=== PATIENT | female | born 1935 | race Caucasian/White ===

== ENCOUNTER 2022-03-20 07:16 | Day surgery (SDC) | payer MEDICARE, BC ==
[2022-03-16 13:11] VITALS: BMI 31.1
[~2022-03-20 07:16] MED LIST: LACTATED RINGERS 1,000 ML IV SCH
[2022-03-20 08:06] VITALS: RESP 16; TEMP 97.4
[2022-03-20] MEDS ORDERED: PROPOFOL 10 MG/ML 20 ML VIAL IV ONE (08:44)
--- NOTE | 2022-03-20 09:02 | P.PCN ---
Date of Procedure: 03/20/22 Procedure(s) Performed: BRIEF HISTORY: Patient is a 86-year-old pleasant female scheduled for an elective colonoscopy as a part of evaluation of intermittent rectal bleeding for the last few months duration. PROCEDURE PERFORMED: Colonoscopy. PREOPERATIVE DIAGNOSIS: Intermittent rectal bleeding. IV sedation per Anesthesia. PROCEDURE: After informed consent was obtained, the patient, was brought into the endoscopy unit. IV sedation was administered by Anesthesia under continuous monitoring. Digital rectal examination was normal. Initially the Olympus CF-160 flexible video colonoscope was then inserted in the rectum, gradually advanced into the cecum without any difficulty. Careful examination was performed as the scope was gradually being withdrawn. Ileocecal valve and the appendiceal orifice were visualized and appeared normal. Prep was excellent. Mucosa of the cecum, ascending colon, transverse colon, descending colon, sigmoid colon, and rectum appeared normal. Scattered sigmoid diverticulosis. Retroflexion was performed in the rectum and grade 2 internal hemorrhoids were seen. The patient tolerated the procedure well. IMPRESSION: Moderate left sided diverticulosis Grade 2 internal hemorrhoids RECOMMENDATIONS: Findings of this examination were discussed with the patient i s a family. She was advised to be a high-fiber diet and take fiber supplements a regular basis and avoid straining and constipation..
[2022-03-20 09:26] VITALS: BP 129/76; PULSE 64
== END 2022-03-20 09:48 | disposition home or self-care (01) ==
LOC: ORWHC2ENDO 07:16
PROVIDERS: ATTEND Internal Medicine Gastroenterology
DX: K57.30 Diverticulosis of large intestine without perforation or abscess without bleeding (principal); K64.8 Other hemorrhoids; I10 Essential (primary) hypertension; F41.9 Anxiety disorder, unspecified; Z88.5 Allergy status to narcotic agent; E07.9 Disorder of thyroid, unspecified; Z79.899 Other long term (current) drug therapy; Z79.890 Hormone replacement therapy
CPT/HCPCS: 45378; J2704

== ENCOUNTER 2023-07-03 06:03 | Day surgery (SDC) | payer BC, MEDICARE ==
[2023-07-01 10:20] VITALS: BMI 25.9
[~2023-07-03 06:03] MED LIST changes: +ACETAMINOPHEN TAB 500 MG TAB PO PRN; +HEPARIN SODIUM,PORCINE 5,000 UNIT/ML 1 ML VIAL SQ PRN; -LACTATED RINGERS 1,000 ML IV SCH; +Pre Op ABX Message 1 EACH MISC MISCELLANE ONE
[2023-07-03] MEDS ORDERED: LACTATED RINGERS 1,000 ML IV SCH (06:19)
[2023-07-03] MEDS ORDERED: LIDOCAINE 1% (10MG/ML) FOR IV START INTRADERMA PRN (06:19)
[2023-07-03] MEDS ORDERED: droPERidol 5 MG/2 ML VIAL IVP ONE (06:19)
[2023-07-03] MEDS ORDERED: ONDANSETRON 4 MG/2 ML VIAL IVP ONE (06:19)
[2023-07-03] MEDS ORDERED: DEXAMETHASONE SOD PHOSPHATE 4 MG/ML 1 ML VIAL IV ONE (06:19)
[2023-07-03] MEDS ORDERED: HYDROmorphone 0.5 MG/0.5 ML SYRINGE IVP PRN (07:00)
[2023-07-03 07:25] LABS: Basophils % (A) 0 %; Eosinophils # (A) 0.1 k/uL (0-0.7); Eosinophils % (A) 1 %; HCT 48.6 % (34.0-46.0); HGB 16.6 gm/dL (11.4-16.0); Lymphocytes # (A) 0.8 k/uL (1.0-4.8); Lymphocytes % (A) 8 %; MCH 32.2 pg (25.0-35.0); MCHC 34.2 g/dL (31.0-37.0); Mean Platelet Volume 8.1; Monocytes # (A) 0.5 k/uL (0-1.0); Monocytes % (A) 5 %; Neutrophils # (A) 8.8 k/uL (1.3-7.7); Neutrophils % (A) 85 %; Platelet Count 221 k/uL (150-450); RBC 5.17 m/uL (3.80-5.40); RDW 12.9 % (11.5-15.5); WBC 10.4 k/uL (3.8-10.6)
[2023-07-03] MEDS ORDERED: PROPOFOL 10 MG/ML 20 ML VIAL IV ONE (07:25)
[2023-07-03] MEDS ORDERED: fentaNYL (PF) 50 MCG/ML 2 ML AMP ONE (07:25)
[2023-07-03] MEDS ORDERED: MIDAZOLAM 2 MG/2 ML VIAL ONE (07:25)
[2023-07-03 07:36] LABS: African American GFR (CKD) >90 (>60 ml/min/1.73 sqM); Anion Gap 16 mmol/L; Blood Urea Nitrogen 21 mg/dL (7-17); Calcium 9.9 mg/dL (8.4-10.2); Carbon Dioxide 22 mmol/L (22-30); Chloride 102 mmol/L (98-107); Glucose 105 mg/dL (74-99); Non-African American GFR(CKD) 81 (>60 ml/min/1.73 sqM); Sodium 140 mmol/L (137-145)
[2023-07-03 07:40] LABS: Potassium 3.3 mmol/L (3.5-5.1)
[2023-07-03] MEDS ORDERED: LIDOCAINE 0.5%-EPI 1:200,000 50 ML VIAL SQ ONE (08:07)
--- NOTE | 2023-07-03 08:23 | P.OP ---
Date of Procedure: 07/03/23 Preoperative Diagnosis: Internal and external hemorrhoids Postoperative Diagnosis: Internal and external hemorrhoids Procedure(s) Performed: Excision of internal and external hemorrhoids Anesthesia: yamilet CARRANZA Surgeon: Miguel Major Pathology: other (Internal and external hemorrhoids) Condition: stable Disposition: PACU Description of Procedure: The patient received spinal anesthetic. She was then placed in the prone jackknife position. Her anus was prepped and draped usual fashion. Patient had large internal and external hemorrhoids. The left lateral hemorrhoidal column was grasped. Allis clamps after the anus retractors placed. And then using the Harmonic scissors the hemorrhoid was performed. In identical fashion the right anterior and right posterior hemorrhoid columns were removed. The was retrieved cyst. There is no bleeding seen. The anus then injected with 1% local Xyloca ine. Patient tolerated the procedure well. She was sent to recovery in stable condition.
[2023-07-03 08:42] VITALS: TEMP 97.1
[2023-07-03] MEDS ORDERED: METOPROLOL TARTRATE 25 MG TAB PO SCH (10:45)
[2023-07-03 11:28] VITALS: BP 116/82; PULSE 98; RESP 18
--- NOTE | 2023-07-03 14:11 | P.CRDCN ---
History of Present Illness Consult date: 07/03/23 Consult reason: atrial fibrillation (New-onset) History of present illness: History of present illness: This is an 88-year-old female patient with Dr. Barney with past medical history of hypertension. We have been asked to evaluate patient for atrial fibrillation during surgery. Patient presented to the hospital status post hemorrhoidectomy is seen today in the recovery room. Patient has no symptoms. She no previous history of atrial fibrillation. Rhythm strips during procedure is SVT that was short and self-limiting. EKG is atrial tachycardia. Patient states she has chronic shortness of breath no change. No chest pain and no palpitations. Blood pressure 123/67, heart rate currently 60s. Home cardiac medications: Echocardiogram performed 07/2020 revealed normal EF, mild to moderate MR Lexiscan stress test performed 12/28/2020 was normal Review Of Systems: At the time of my exam: CONSTITUTIONAL: Denies fever or chills. CARDIOVASCULAR: Denies chest pain, Denies shortness of breath, no orthopnea, PND or palpitations. RESPIRATORY: Denies cough. GASTROINTESTINAL: Denies abdominal pain, diarrhea, constipation, nausea or vomi ting. MUSCULOSKELETAL: Denies myalgias. NEUROLOGIC: Denies numbness, tingling or weakness. ENDOCRINE: Denies fatigue, weight change, polydipsia or polyurina. GENITOURINARY: Denies burning, hematuria or urgency with micturation. HEMATOLOGIC: Denies history of anemia or bleeding. Physical examination: Gen: This is an 88-year-old female resting on stretcher and appears to be comfortable. VS: reviewed HEENT: Head is atraumatic, normocephalic. Pupils equal, round. Sclerae is anicteric. NECK: Supple. No JVD. LUNGS: Clear to auscultation. No wheezes or rhonchi. No intercostal retractions. HEART: Regular rate and rhythm. Systolic murmur. ABDOMEN: Soft No tenderness. EXTREMITIES: No pedal edema. No calf tenderness. NEUROLOGICAL: Patient is awake, alert and oriented x3. Assessment: Atrial tachycardia self-limiting Hypertension Plan: Start patient on Lopressor 25 mg twice daily Patient is cleared for discharge from cardiology will follow up with Dr. Barney in one week. Thank you kindly for this consultation. Nurse practitioner note has been reviewed, I agree with documented findings and plan of care. Patient was seen and examined. Past Medical History Past Medical History: Hypertension, Osteoarthritis (OA), Thyroid Disorder Additional Past Medical History / Comment(s): SOB. Trouble with bowel movements due to hemrrhoids. URINARY LEAKAGE WEARS A PAD. History of Any Multi-Drug Resistant Organisms: None Reported Past Surgical History: Cholecystectomy, Joint Replacement, Tubal Ligation Additional Past Surgical History / Comment(s): BILATERAL TOTAL KNEE, HIP AND SHOULDER REPLACEMENTS, BILATERAL CATARCATS REMOVED. Past Anesthesia/Blood Transfusion Reactions: Motion Sickness, Postoperative Nausea & Vomiting (PONV) Past Psychological History: Anxiety Smoking Status: Never smoker Past Alcohol Use History: None Reported Past Drug Use History: None Reported - Past Family History Mother Family Medical History: No Reported History Medications and Allergies Home Medications Medication Instructions Recorded Confirmed Type Chlorthalidone 25 mg PO DAILY 03/16/22 07/03/23 History Levothyroxine Sodium [Synthroid] 112 mcg PO PC-LUNCH 03/16/22 07/03/23 History ALPRAZolam [Xanax] 1 mg PO HS 07/01/23 07/03/23 History Cholecalciferol [Vitamin D3 (25 50 mcg PO DAILY 07/01/23 07/03/23 History Mcg = 1000 Iu)] Multivitamins, Thera [Multivitamin 1 tab PO DAILY 07/01/23 07/03/23 History (formulary)] Acetaminophen Tab [Tylenol] 650 mg PO Q6H #30 tab 07/03/23 Rx Docusate [Colace] 100 mg PO BID #20 capsule 07/03/23 Rx Ibuprofen [Motrin] 600 mg PO Q6HR PRN #40 tab 07/03/23 Rx Metoprolol Tartrate [Lopressor] 25 mg PO BID #60 tab 07/03/23 Rx oxyCODONE HCL [OxyIR] 5 mg PO Q6H PRN 3 Days #10 tab 07/03/23 Rx Allergies Allergy/AdvReac Type Severity Reaction Status Date / Time morphine Allergy Severe Nausea & Verified 07/03/23 07:01 Vomiting Physical Exam Vitals: Vital Signs Temp Pulse Resp BP BP Pulse Ox 07/03/23 10:15 82 17 114/65 99 07/03/23 10:00 86 15 126/86 99 07/03/23 09:45 91 16 111/75 100 07/03/23 09:30 83 16 112/61 100 07/03/23 09:15 108 H 16 116/54 100 07/03/23 09:00 83 16 122/75 100 07/03/23 08:45 93 16 136/73 99 07/03/23 08:35 86 16 159/86 99 07/03/23 08:30 84 16 70/54 98 07/03/23 08:19 97.1 F L 101 H 16 123/72 99 07/03/23 07:15 98.3 F 74 16 154/67 95 Intake and Output 07/02/23 07/03/23 07/03/23 22:59 06:59 14:59 Intake Total 100 Balance 100 Intake: IV 100 Other: Weight 70.31 kg Results 07/03/23 07:15 07/03/23 07:15 CBC 07/03/23 Range/Units 07:15 WBC 10.4 (3.8-10.6) k/uL RBC 5.17 (3.80-5.40) m/uL Hgb 16.6 H (11.4-16.0) gm/dL Hct 48.6 H (34.0-46.0) % Plt Count 221 (150-450) k/uL Comprehensive Metabolic Panel 07/03/23 Range/Units 07:15 Sodium 140 (137-145) mmol/L Potassium 3.3 L (3.5-5.1) mmol/L Chloride 102 (98-107) mmol/L Carbon Dioxide 22 (22-30) mmol/L BUN 21 H (7-17) mg/dL Creatinine 0.63 (0.52-1.04) mg/dL Glucose 105 H (74-99) mg/dL Calcium 9.9 (8.4-10.2) mg/dL Current Medications Generic Name Dose Route Start Last Admin Trade Name Freq PRN Reason Stop Dose Admin Hydromorphone HCl 0.5 mg 07/03/23 07:00 Hydromorphone 0.5 Mg/0.5 Ml Syringe IVP 07/03/23 23:00 Q5M PRN Phase 1 or 2 - Pain Control Lactated Ringer's 1,000 mls @ 20 mls/hr 07/03/23 06:19 07/03/23 07:27 Lactated Ringers IV 08/02/23 06:20 100 mls .Q24H DAVID Administration Lidocaine HCl 0.1 ml 07/03/23 06:19 Lidocaine 1% (10mg/Ml) For Iv Start INTRADERMA 08/02/23 06:20 PER PROTOCOL PRN IV Start Intake and Output 07/02/23 07/03/23 07/03/23 22:59 06:59 14:59 Intake Total 100 Balance 100 Intake: IV 100 Other: Weight 70.31 kg Patient Weight 07/04/23 06:59 Weight 70.31 kg 07/03/23 07:15 07/03/23 07:15
== END 2023-07-03 11:51 | disposition home or self-care (01) ==
LOC: OR 06:03
PROVIDERS: ATTEND Surgery
DX: K64.3 Fourth degree hemorrhoids (principal); K64.4 Residual hemorrhoidal skin tags; F41.9 Anxiety disorder, unspecified; I10 Essential (primary) hypertension; I47.19 Other supraventricular tachycardia; I48.91 Unspecified atrial fibrillation; M19.90 Unspecified osteoarthritis, unspecified site; Z90.49 Acquired absence of other specified parts of digestive tract; Z79.899 Other long term (current) drug therapy
CPT/HCPCS: 46260; 88304; 80048; 85025; J2250; J1644; J1100; J2405; J3010; J2704